=== PATIENT | male | born 1970 | race African-American/Black ===

== ENCOUNTER 2018-04-03 01:30 | Emergency (ER) | END 2018-04-03 03:07 | disposition home or self-care (01) ==

== ENCOUNTER 2018-05-16 13:01 | Emergency (ER) | payer OTHER ==
[~2018-05-16] VITALS: Wt 107.5 kg
[~2018-05-16 13:01] MED LIST: ALBU8.5H8 INH; PRED50TA PO
[2018-05-16 13:02] VITALS: BP 126/65; PULSE 60; RESP 24
[2018-05-16] MEDS ORDERED: ALBUTEROL 0.083% (NEB) 2.5 MG/3 ML AMP HHN STA (13:32)
[2018-05-16] MEDS ORDERED: IPRATROPIUM (NEB) 0.5 MG/2.5 ML AMP HHN ONE (14:00)
[2018-05-16] MEDS ORDERED: DEXAMETHASONE 10 MG/ML 1 ML INJ IM ONE (14:00)
[2018-05-16] MEDS ORDERED: ALBU18HF INHALATION (14:39)
[2018-05-16] MEDS ORDERED: MOME13HF3 INHALATION (14:39)
--- NOTE | 2018-05-16 14:58 | ERD ---
ER Documentation Chief Complaint Chief Complaint bib self, cc: asthma since last night ran out of inhaler HPI 47-year-old male presenting with asthma exacerbation. Patient states he ran out of his inhaler and has had troubles breathing since last night. He has had no fevers. Has a dry cough. Denies other medical problems. Allergic to sulfa. surgical history is Achilles tendon repair. Social history denies ROS All systems reviewed and are negative except as per history of present illness. Medications Home Meds Active Scripts Albuterol Sulfate* (Ventolin HFA*) 18 Gm Hfa.aer.ad, 2 PUFF INHALATION Q4H, #1 INHALER Prov:RODNEY GILLESPIE PA-C 05/16/18 Mometasone Furoate (Asmanex Hfa) 13 Gm Hfa.aer.ad, 1 PUFF INHALATION BID, #1 INHALER Prov:RODNEY GILLESPIE PA-C 05/16/18 Prednisone* (Prednisone*) 50 Mg Tablet, 50 MG PO DAILY, #4 TAB Prov:NALLELY CALDERON PA-C 04/03/18 Albuterol Sulfate* (Proair HFA*) 8.5 Gm Hfa.aer.ad, 2 PUFF INH Q4, #1 INHALER Prov:NALLELY CALDERON PA-C 04/03/18 Allergies Allergies: Coded Allergies: Sulfa (Sulfonamide Antibiotics) (Verified Allergy, Unknown, 05/16/18) PMhx/Soc History of Surgery: No (Left Achilles Tendon Repair) Anesthesia Reaction: No Hx Neurological Disorder: No Hx Respiratory Disorders: Yes (asthma) Hx Cardiac Disorders: No Hx Psychiatric Problems: No Hx Miscellaneous Medical Probl: No Hx Alcohol Use: Yes (Social) Hx Substance Use: No Hx Tobacco Use: No Smoking Status: Never smoker FmHx Family History: No diabetes, No coronary disease, No other Physical Exam Vitals Vital Signs Date Temp Pulse Resp B/P (MAP) Pulse Ox O2 O2 Flow FiO2 Time Delivery Rate 05/16/18 70 18 96 21 14:00 05/16/18 98.1 60 24 126/65 100 13:02 (85) Physical Exam GENERAL: The patient is well-appearing, well-nourished, in no acute distress HEENT: Atraumatic. Conjunctivae are pink. Pupils equal, round, and reactive to light. There is no scleral icterus. Tympanic membranes clear bilaterally. Oropharynx clear. CHEST: Diffuse wheezing heard on auscultation. No retractions. No focal rhonchi. HEART: Regular rate and rhythm. No murmurs, clicks, rubs or gallops. No S3 or S4. Results 24 hrs Current Medications Medications Dose Sig/Kacie Start Time Status Last (Trade) Ordered Route PRN Stop Time Admin Dose Reason Admin Albuterol 5 mg ONCE STAT 05/16/18 DC 05/16/18 (Proventil HHN 13:32 13:59 0.083% (Neb)) 05/16/18 13:34 Ipratropium 0.5 mg ONCE ONCE 05/16/18 DC 05/16/18 [facility] 14:00 13:59 (Atrovent 05/16/18 14:01 0.02% (Neb)) 10 mg ONCE ONCE 05/16/18 DC 05/16/18 Dexamethasone IM 14:00 13:48 (Decadron) 05/16/18 14:01 Procedures/MDM ER course: Decadron, albuterol and Atrovent breathing treatment given ED. Upon reevaluation patient symptoms have dramatically improved. MDM: 47-year-old male presenting with asthma exacerbation. I have low suspicion for respiratory distress or hypoxia. Patient's oxygen levels are stable at 100% on room air and symptoms dramatically improved after breathing treatment in the ER. Patient is discharged with supportive medications. I do not feel that there is indication for x-ray and I have low suspicion for pneumonia. Patient is told symptoms change or worsen to return immediately to the ER. All questions answered at discharge Departure Diagnosis: Primary Impression: Asthma with acute exacerbation Condition: Stable Patient Instructions: Asthma, Acute (Adult) Referrals: [facility] YOU HAVE RECEIVED A MEDICAL SCREENING EXAM AND THE RESULTS INDICATE THAT YOU DO NOT HAVE A CONDITION THAT REQUIRES URGENT TREATMENT IN THE EMERGENCY DEPARTMENT. FURTHER EVALUATION AND TREATMENT OF YOUR CONDITION CAN WAIT UNTIL YOU ARE SEEN IN YOUR DOCTORS OFFICE WITHIN THE NEXT 1-2 DAYS. IT IS YOUR RESPONSIBILITY TO MAKE AN APPOINTMENT FOR FOLOW-UP CARE. IF YOU HAVE A PRIMARY DOCTOR --you should call your primary doctor and schedule an appointment IF YOU DO NOT HAVE A PRIMARY DOCTOR YOU CAN CALL OUR PHYSICIAN REFERRAL HOTLINE AT IF YOU CAN NOT AFFORD TO SEE A PHYSICIAN YOU CAN CHOSE FROM THE FOLLOWING [facility] [address] [facility] [address] [facility] [address] [facility] [address] [facility] [facility] [address] [facility]. [facility] [address] Additional Instructions: FOLLOW UP WITH YOUR PRIMARY CARE PHYSICIAN TOMORROW.Return to this facility if you are not improving as expected. RODNEY GILLESPIE PA-C May 16, 2018 14:58
== END 2018-05-16 14:50 | disposition home or self-care (01) ==
LOC: FTE 13:01
DX: J45.901 Unspecified asthma with (acute) exacerbation (principal)
CPT/HCPCS: 94664; 96372; J1100; Z7502; Z7610